=== PATIENT | female | born 1990 | race African-American/Black ===

== ENCOUNTER 2017-08-04 17:47 | Emergency (ER) | payer OTHER ==
[2017-08-04 18:23] VITALS: BP 143/73; PULSE 78; TEMP 98.3; BMI 38.2
[2017-08-04] MEDS ORDERED: KETOROLAC TROMETHAMINE 30 MG/1 ML VIAL IM ONE (18:23)
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
[2017-08-04] MEDS ORDERED: CYCLOBENZAPRINE HCL 10 MG TABLET (FP) PO ONE (18:24)
[2017-08-04] MEDS ORDERED: CYCLOBENZAPRINE HCL 10 MG TABLET (FP) ONE (20:18)
[2017-08-04] MEDS ORDERED: KETOROLAC TROMETHAMINE 30 MG/1 ML VIAL ONE (20:19)
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
== END 2017-08-04 21:03 | disposition home or self-care (01) ==
LOC: JERFT 17:47
PROC: 3E0233Z Introduction of Anti-inflammatory into Muscle, Percutaneous Approach (ICD-10-PCS; principal; 2017-08-04)
DX: S16.1XXA Strain of muscle, fascia and tendon at neck level, initial encounter (principal); S39.012A Strain of muscle, fascia and tendon of lower back, initial encounter; V49.49XA Driver injured in collision with other motor vehicles in traffic accident, initial encounter; Y92.414 Local residential or business street as the place of occurrence of the external cause; Y93.89 Activity, other specified; Y99.8 Other external cause status
CPT/HCPCS: 72050-TC-FY; 72100-TC-FY; 84703; 99281-25

== ENCOUNTER 2018-02-05 17:44 | Emergency (ER) | payer OTHER ==
--- NOTE | 2018-02-05 18:24 | PDOC ---
Rapid Medical Evaluation Chief Complaint: Head/Neck problem Time Seen by Provider: 02/05/18 18:23 Medical Evaluation: Allergies Allergy/AdvReac Type Severity Reaction Status Date / Time No Known Allergies Allergy Verified 08/04/17 18:19 02/05/18 18:27 c/o shooting pain from neck now with numbness to left arm and right arm up to right elbow. history of cervical disc herniation PE: patient alert ox3. equal strength + cervical spine tenderness A: back pain with numbness P: urine patient to the ER for further management of care Discharge Disposition - Diagnosis Back pain associated with peripheral numbness - Referrals - Patient Instructions - Post Discharge Activity
[2018-02-05 18:29] VITALS: TEMP 98.3; BMI 35.2
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
[2018-02-05] MEDS ORDERED: IBUPROFEN 600 MG TABLET (FP) PO ONE ×2 (20:29→20:33)
[2018-02-05] MEDS ORDERED: METHOCARBAMOL 500 MG TABLET PO ONE (20:29)
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
[2018-02-05] MEDS ORDERED: METHOCARBAMOL 500 MG TABLET ONE (20:33)
[2018-02-05 22:04] VITALS: BP 132/79; PULSE 95
== END 2018-02-05 22:05 | disposition home or self-care (01) ==
LOC: JER 17:44
DX: M62.830 Muscle spasm of back (principal)
CPT/HCPCS: 72125-TC; 84703; 99281-25